=== PATIENT | female | born 1995 ===

== ENCOUNTER 2017-12-02 06:00 | Inpatient (IN) ==
[2017-12-02] MEDS ORDERED: Naloxone 0.4 MG/ML INJ IVP PRN (07:19)
[2017-12-02] MEDS ORDERED: *HR* Nalbuphine 20 MG/ML AMPUL IVP PRN (07:19)
[2017-12-02] MEDS ORDERED: Metoclopramide 10 MG/2 ML VIAL IVP PRN (07:19)
[2017-12-02] MEDS ORDERED: Ondansetron 4 MG/2 ML VIAL IVP PRN (07:19)
[2017-12-02] MEDS ORDERED: Famotidine 20 MG/2 ML VIAL IVP PRN (07:19)
[2017-12-02] MEDS ORDERED: miSOPROStol 25 MCG TABLET VG PRN (07:22)
[2017-12-02] MEDS ORDERED: Ringers Solution, Lactated 1,000 ML IVC SCH (07:30)
[2017-12-02 08:12] LABS: Basophils % 0.1 %; Eosinophils # 0.1 K/mcL (0.0-0.6); Eosinophils % 0.9 %; Hematocrit 33.3 % (35.3-44.9); Hemoglobin 10.8 g/dL (11.5-15.4); Immature Granulocytes % 0.4 % (0-4); Lymphocytes # 1.6 K/mcL (0.6-4.6); Lymphocytes % 19.4 %; Mean Corpuscular HGB Conc 32.4 g/dL (31.6-35.5); Mean Corpuscular Hemoglobin 27.1 pg (28.0-33.3); Mean Corpuscular Volume 83.7 fL (83.0-100.0); Mean Platelet Volume 11.4 fL (9.4-12.4); Monocytes # 0.6 K/mcL (0.0-1.3); Monocytes % 7.9 %; Neutrophils # 5.8 K/mcL (1.6-8.9); Platelet Count 176 K/mcL (140-400); Red Blood Count 3.98 M/mcL (3.82-4.97); Red Cell Distribution Width 13.6 % (11.5-14.5); Segmented Neutrophils % 71.3 %
--- NOTE | 2017-12-02 08:28 | OB/GYN History & Physical ---
Date of Encounter: 12/02/17 Time of Encounter: 08:30 Assessment and Plan (1) and not yet delivered in third trimester Current visit: Yes Status: Acute (2) 39 weeks gestation of Current visit: Yes Status: Acute (3) Elective induction of labor planned Current visit: Yes Status: Acute Patient will be induced with a Hollis catheter and Cytotec plan is to anticipate vaginal delivery History of Present Illness HPI: Ms. Iqbal is a 22 year old female 2 para 0101 at 39-3/7 weeks by last menstrual period equal to an 8 and 6/7 week ultrasound who presented for induction of labor due to term with favorable cervix patient has had an unremarkable course and wanted be induced as soon she could patient' s cervix was favorable and we advised after 39 weeks we could induce her. She did have an ultrasound approximately 3 weeks ago baby weighed 2915 g which was at the 54th percentile with an AUNDREA of 14 cm. She is not complaining of any leaking of fluid no contractions and good movement. Patient has a positive rubella positive GBS negative Past Med Surg Social Fam HX - Past Medical History Medical history: no medical history Psychiatric history: no psych history - Past Surgical History Surgical History: non-contributory, other (Tonsillectomy with adenoids, wisdom teeth) - Social History Smoking Status: Never smoker Smokeless Tobacco Status: No Alcohol use: none Drug use: none Occupational status: unemployed Current living situation: Home - Independent Activity Level: Independent ambulation Recent Out of Country Travel Within the Last 8 Weeks: No Exposure or Possible Exposure to Illness During Travel: No - Family History Mother History Unknown: Yes Living Status: Still Living Hx Family Cardiac Disorders: No Hx Family Respiratory Disorders: No Hx Family Cancer: No Hx Family GI Disorders: No Hx Family Genitourinary Disorders: No Hx Family Endocrine Disorder: No Hx Family Musculoskeletal Disorders: No Hx Family Neuromuscular Disorders: No Hx Family Neurologic Disorders: No Hx Family HEENT Disorders: No Hx Family Autoimmune Disorders: No Hx Family Reproductive Disorders: No Hx Family Psychosocial Disorders: No Hx Family Medical Disorders: No - Additional Family History Additional family history: Family history noncontributory at this time Obstetrical History - Pregnancies : 2 Para: 1 Term: 0 : 1 Ab's: 0 Livin Medications and Allergies 3 Allergy/AdvReac Type Severity Reaction Status Date / Time No Known Allergies Allergy Verified 05/29/15 22:41 Review of System OB All systems PM: reviewed and no additional remarkable complaints except as stated Exam - Constitutional Constitutional: well developed, well nourished, no acute distress, average body habitus - HEENT HEENT: EOMI, PERRL, Mucus Membranes Moist - Neck Neck exam: full ROM - Lungs Respiratory exam: CTAB - Cardiovascular Cardiovascular exam: RRR - Abdomen Abdomen: Present: bowel sounds normal, gravid - Cervix Dilation: 2 Effacement: 80 Station: -2 (Hollis catheter placed within the cervical os 30 mL balloon inflated and 25 g of Cytotec placed in the posterior cul-de-sac) Results Result Diagrams: 12/02/17 07:31 Abnormal lab results Hgb 10.8 g/dL (11.5-15.4) L 12/02/17 07:31 Hct 33.3 % (35.3-44.9) L 12/02/17 07:31 MCH 27.1 pg (28.0-33.3) L 12/02/17 07:31 All other labs normal. - VTE Reasons for not Prescribing Prophylaxis: Treatment not Indicated - Low risk for VTE
--- NOTE | 2017-12-02 08:35 | Anesthesia Evaluation PreOp ---
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 Other Medical History: Denies Any Significant HX Anesthesia History: No Prior Anesthetic Complications, Past Anesthesia Alcohol Use: none Drug use: none Medications and Allergies 3 Allergy/AdvReac Type Severity Reaction Status Date / Time No Known Allergies Allergy Verified 05/29/15 22:41 Anesthesia Results - Labs 12/02/17 07:31 Anesthesia Exam - HEENT Pupil (Motor): Pupils equal Mallampati: II Teeth: Normal Oral Opening: Greater than 3 - NON GARMENT SEWING MACHINE OPERATOR LOC: Oriented NON GARMENT SEWING MACHINE OPERATOR Motor: Normal RUE, Normal LUE, Normal RLE, Normal LLE, Normal Face NON GARMENT SEWING MACHINE OPERATOR Sensory: Normal: RUE, LUE, RLE, LLE, Face - Cardiac Rhythm: Regular Murmur: None - Pulmonary Breath Sounds: bilateral Clear Respiratory Effort: Symmetrical Anesthesia Assess/Plan ASA Score: 2 Modified Jesus Scale for Level of Consciousness: Cooperative, oriented, and tranquil Anesthetic Plan: General, Regional Monitoring Plan: Standard Monitors Recovery Plan: PACU
[2017-12-02 08:42] LABS: Amphetamine Screen,Urine Negative ng/mL (Cutoff=1000); Barbiturate Screen,Urine Negative ng/mL (Cutoff=200); Benzodiazepines Screen,Urine Negative ng/mL (Cutoff=200); Cannabinoid Screen,Urine Negative ng/mL (Cutoff = 50); Cocaine Screen,Urine Negative ng/mL (Cutoff= 300); Opiate Screen,Urine Negative ng/mL (Cutoff=300); Phencyclidine Screen,Urine Negative ng/mL (Cutoff=25)
[2017-12-02] MEDS ORDERED: Epidural Premix (fent/bupiv) 110 ML EP ONE ×2 (08:45→17:02)
--- NOTE | 2017-12-02 10:38 | OB Labor Progress Note ---
Date of Encounter: 12/02/17 Time of Encounter: 10:35 Labor Progress Note - Subjective Subjective: Pt reports pain manageable for now. Rates ctx 6/10 - Cervix Cervix: 4/60/-1 - Heart Tones Heart Tones: Baseline 145 Moderate variability Accelerations present and 15 x 15 Recurrent variable and late decelerations - position changed Fetus Category II - [place]: Contractions every 3 minutes and palpate moderate - Interventions Interventions: Position change made to improve FHR. - Plan Plan: Continue induction management Frequent position changes Will reevaluate for AROM in 1 hour Anticipate vaginal delivery
--- NOTE | 2017-12-02 12:08 | Anesthesia Procedures ---
Date of Encounter: 12/02/17 Time of Encounter: 11:46 Procedures: Anesthesia - Epidural/Spinal Patient ID/Chart reviewed: Yes Patient examined: Yes OB Eval: Gestational age: term OB Eval: : 2 OB Eval: Hx Para: 1 OB Eval: Contractions: Non-stressed pattern Consent Obtained: Yes Supplemental Oxygen: None/Room Air Site Prep: Aseptic Technique, Sterile prep and drape, 0.5% Chlorhexidine/Alcohol Patient position: upright Local Anesthetic: Lidocaine 1% Amount of Local Anesthetic used: 2 Touhy Needle Gauge: 18 Touhy Needle Depth (cm): 7 Catheter Depth at Skin (cm): 12 Test Dose (1.5% Lido + Epi): Volume given (mls): 3 Test Dose Result: Negative Loading Dose: Other: 10ml from solution Loading Dose Administered: Thru Catheter Infusion Med: 0.125% Bupivacaine w/ 2 mcg/ml Fentanyl Infusion Rate (mls/hr): [address]: Tegaderm, Tape Interspace Used: L3-L4 Loss of Resistance (SOFIYA): Yes (saline) Blood: No CSF: No Paresthesia: No Procedure: vss though out, FHR stable per RN's
--- NOTE | 2017-12-02 12:52 | OB Labor Progress Note ---
Date of Encounter: 12/02/17 Time of Encounter: 12:50 Labor Progress Note - Subjective Subjective: Pt reports pain well controlled with epidural. SROM upon entering room - clear fluid - Cervix Cervix: 4/60/-1 - Heart Tones Heart Tones: Baseline 145 Moderate variability Accelerations present 15x15 Decelerations rare - variable Category II - [place]: Unable to determine - palpate 3-5 and moderate - Interventions Interventions: IUPC placed - Plan Plan: Continue expectant management IUPC placed Consider pitocin initiation to adequate contraction pattern Anticipate vaginal delivery Dr. Lacy aware of POC and agrees
--- NOTE | 2017-12-02 14:25 | OB Labor Progress Note ---
Date of Encounter: 12/02/17 Time of Encounter: 14:21 Labor Progress Note - Subjective Subjective: Pt reports pain well controlled with epidural. No other concerns at this time. - Cervix Cervix: 4/60/-1 - Heart Tones Heart Tones: Baseline 155 Moderate variability Accelerations present 15 x 15 Occasional variable decelerations Fetus Category II - [place]: Contractions every 3+ minutes - Interventions Interventions: Start pitocin - Plan Plan: Continue expectant management Start pitocin Use peanut ball for frequent position changes Anticipate vaginal delivery
[2017-12-02] MEDS ORDERED: Oxytocin 20 units/ LR 1000 mL 20 UNIT/1,000 ML BAG IVC SCH (14:30)
--- NOTE | 2017-12-02 16:36 | OB Labor Progress Note ---
Date of Encounter: 12/02/17 Time of Encounter: 16:34 Labor Progress Note - Subjective Subjective: Pt reports being able to feel contractions but they are manageable at this time. Epidural remains in place. Pt does not desire bolus at this time. - Cervix Cervix: 6/70/-1 - Heart Tones Heart Tones: Baseline 155 Moderate variability Accelerations present 15 x 15 Variable decelerations occasional FHR Category II - [place]: IUPC in place Ctx 2-3 minutes and palpate strong - Plan Plan: Continue expectant management Maintain frequent position changes Continue pitocin augmentation Anticipate vaginal delivery Dr. Lacy aware of POC and agrees
[2017-12-02] MEDS ORDERED: Lidocaine/EPI 1:200k 2% PF 20 ML VIAL ONE ×2 (16:56→20:04)
--- NOTE | 2017-12-02 17:27 | Anesthesia Progress Note ---
Date of Encounter: 12/02/17 Time of Encounter: 17:04 Anesthesia Note - Note Note: 12/02/17 17:24 bolus after neg aspiration 7ml equal mix of 0.5% bup plain, and lido 2% with epi 1:200K. for right sided back labor, RN and I spoke with patient about epidurals and back labor, left sided level T6, right sided T4 to ETOH skin. VSS family at .
--- NOTE | 2017-12-02 18:57 | OB Labor Progress Note ---
Date of Encounter: 12/02/17 Time of Encounter: 18:55 Labor Progress Note - Subjective Subjective: Pt aware of contractions but comfortable with epidural. States she feels pressure "like someone is pulling on my catheter." - Cervix Cervix: 790/-1 Cervix slightly swollen - Heart Tones Heart Tones: Baseline 155 Moderate variability Accelerations present 15x15 Recurrent late decelerations - Dr. Lacy aware/position changes made/IV fluid bolus initiated FHR Category II - [place]: IUPC contractions every 2-4 palpating strong - Interventions Interventions: FSE placed - Plan Plan: Continue expectant management Continue frequent position changes Use peanut ball FSE placed Anticipate vaginal delivery Dr. Lacy aware of POC and agrees
[2017-12-02] MEDS ORDERED: Ondansetron 4 MG/2 ML VIAL ONE (20:14)
[2017-12-02] MEDS ORDERED: *HR* Oxytocin 10 UNIT/ML VIAL IM ONE (20:14)
[2017-12-02] MEDS ORDERED: Ringers Solution, Lactated 1,000 ML ONE (20:21)
[2017-12-02] MEDS ORDERED: Morphine Sulfate/PF 5mg/10mL Vial ONE (21:08)
[2017-12-02] MEDS ORDERED: Acetaminophen IV 1,000 MG/100 ML INFUS..BTL IVPB ONE (21:14)
[2017-12-02] MEDS ORDERED: *HR* Promethazine 25 MG/ML VIAL IVP PRN (21:14)
--- NOTE | 2017-12-02 21:31 | OB Labor Progress Note ---
Date of Encounter: 12/02/17 Time of Encounter: 20:30 Labor Progress Note - Subjective Subjective: Patient having repetitive late decelerations every time we try to get the Pitocin started patient is still at 6 cm and since baby is not tolerating the labor as recommended section - Cervix Cervix: 6/80/-3 ballotable - Heart Tones Heart Tones: heart tones 140s with category 2 strip with repetitive late decelerations - [place]: Contractions every 2-3 minutes - Plan Plan: Patient will be prepped for a primary low transverse uterine section
--- NOTE | 2017-12-02 21:34 | OB/GYN Procedure Note ---
Section - Date of procedure: 12/02/17 Preop diagnosis: other (Intrauterine at 39-3/7 weeks, category 2 tracing with repetitive late decelerations, failure to progress) Post-op diagnosis: same Procedure: primary low transverse Surgeon: Vijay Lacy Estimated blood loss (cc): 500 Was there an law office assistant present: Yes Senior Coldfusion Developer: Roshni Plata Anesthesiologist: Elke Madrigal Doors Prefitter: Isauro Whitney Anesthesia Type: Epidural section complications: none Disposition: L&D Recovery Room Specimens: Placenta - (s) Infant A Infant Delivery Date: 12/02/17 Delivery Time: 20:47 Presentation: vertex Position: ROP Route of delivery: other ( section) Gender: Female Viability: Viable Pounds: 7 Ounces: 8 at 1 minute: 9 at 5 minutes: 9 Shoulder Dystocia: not encountered Specimens collected: cord blood Placenta: spontaneous Cord: 3 umbilical vessels - Narrative Narrative: Patient is a 22-year-old 2 para 1 at 39 and 3 since weeks who presented for induction of labor secondary to in with favorable cervix for the catheter and Cytotec was placed which had fallen out approximately 2 hours after placement she was artificially ruptured for clear fluid patient's contractions had spaced out we started on Pitocin patient was doing well and started having repetitive late decelerations we turned the Pitocin off those it resolved we tried restarting the Pitocin and the decelerations returned patient was only 6 cm -3 ballotable it was decided at this time that section would be called. Procedure: Patient was taken to the operating room where epidural anesthesia was found be adequate. She was placed in the dorsal supine position with leftward tilt prepped and draped in usual fashion. Timeout was then obtained. A Pfannenstiel incision was made with a scalpel carried out through the underlying tissue to the fascia was identified. Fascia was nicked in midline and extended laterally with Galvez scissors. The superior and inferior edge of the fascia grasped tented up and dissected off the rectus muscles. Rectus muscles were in the midline parietal peritoneum was identified tented up and entered sharply. This was extended superiorly and inferiorly with Metzenbaum scissors. The bladder blade was inserted and the versicouterine peritoneum was identified tented up and entered sharply. The lower uterine segment was incised with a scalpel extended laterally with digital manipulation. The 's head was noted to be in occiput posterior presentation, was disengaged through the incision and the infant was fully delivered the cord was clamped and cut was handed off to waiting pediatric team. Cord blood was not necessary at this time placental spontaneously delivered with a three-vessel cord. Placenta was exteriorized and cleaned of all clots and debris and the lower uterine segment was closed using 0 Vicryl in a running locking stitch by a 2 layer closure. Good hemostasis was noted at this time. The uterus was returned to the abdomen the gutters were cleaned of all clots and debris and copiously irrigated. No active bleeding was noted the fascia was then closed using a #1 stratafix in a running stitch and the skin was closed using a 4-0 Vicryl in subcuticular manner a PRIMEO dressing was then applied and the patient was taken to the recovery room in stable condition. All needles lap and sponge counts were correct 3 and patient tolerated the delivery well for 2 hours before being taken to the floor.
[2017-12-02] MEDS ORDERED: *HR* FentaNYL (PF) 100 MCG/2 ML VIAL ONE (21:38)
[2017-12-03] MEDS ORDERED: Simethicone 80 MG TAB.CHEW PO PRN (00:05)
[2017-12-03] MEDS ORDERED: Ringers Solution, Lactated 1,000 ML IVC SCH (00:05)
[2017-12-03] MEDS ORDERED: Sennosides 8.6 MG TABLET PO PRN (00:05)
[2017-12-03] MEDS ORDERED: MORPHINE SUL Oral CONC 10 MG/0.5 ML ORAL.SYG SL PRN (00:05)
[2017-12-03] MEDS ORDERED: Oxytocin 20 units/ LR 1000 mL 20 UNIT/1,000 ML BAG IVC SCH ×2 (00:05)
[2017-12-03] MEDS ORDERED: Ondansetron 4 MG/2 ML VIAL IVP PRN (00:05)
[2017-12-03] MEDS ORDERED: Metoclopramide 10 MG/2 ML VIAL IVP PRN (00:05)
[2017-12-03] MEDS ORDERED: *HR* OxyCODONE/APAP 5/325 TABLET PO PRN (00:05)
[2017-12-03] MEDS: *HR* OxyCODONE/APAP 10/325 TABLET PO PRN ×4 (02:08→22:57)
[2017-12-03] MEDS ORDERED: *HR* Nalbuphine 20 MG/ML AMPUL IM PRN (07:01)
[2017-12-03 08:09] LABS: Basophils % 0.2 %; Eosinophils % 0.3 %; Hematocrit 31.1 % (35.3-44.9); Hemoglobin 9.9 g/dL (11.5-15.4); Immature Granulocytes % 0.9 % (0-4); Lymphocytes # 1.1 K/mcL (0.6-4.6); Lymphocytes % 9.9 %; Mean Corpuscular HGB Conc 31.8 g/dL (31.6-35.5); Mean Corpuscular Hemoglobin 26.6 pg (28.0-33.3); Mean Corpuscular Volume 83.6 fL (83.0-100.0); Mean Platelet Volume 11.3 fL (9.4-12.4); Monocytes # 0.7 K/mcL (0.0-1.3); Monocytes % 6.7 %; Nucleated Red Blood Cells 0.4 /100 WBC (0); Platelet Count 156 K/mcL (140-400); Red Blood Count 3.72 M/mcL (3.82-4.97); Red Cell Distribution Width 13.7 % (11.5-14.5)
[2017-12-03] MEDS: Prenatal Vit/FA 1 EACH TABLET PO SCH (08:10)
--- NOTE | 2017-12-03 08:40 | OB/GYN Progress Note ---
Date of Encounter: 12/03/17 Time of Encounter: 08:35 - Assessment and Plan (1) delivery delivered Current Visit: Yes Status: Acute Meeting postop milestones Continue routine postop/ care Anticipate discharge home tomorrow (2) Anemia Current Visit: No Status: Acute VSS, asymptomatic Continue po iron daily Qualifiers: Anemia type: unspecified type Qualified Code(s): D64.9 - Anemia, unspecified (3) Mother currently breast-feeding Current Visit: Yes Status: Acute well Subjective - Subjective Principal diagnosis: S/P primary Interval history: S/P ceserean delivery day 1 Pain well controlled Passing flatus; tolerating liquid diet, may advance as tolerated Lochia light and without clots Generalized pruritus with localized rash to areas washed with chlorhexadine; hydrocortisone cream ordered and anesthesia consulted Hollis catheter in place; will remove this morning Breast feeding well VSS Anticipate discharge home tomorrow. Patient reports: appetite normal, voiding normally (Hollis catheter present; will be removed this morning), pain well controlled, ambulating normally Fosters: doing well, nursing well Objective - Vital Signs Latest vital signs: Vital Signs Temp Pulse Resp BP Pulse Ox 12/03/17 08:24 98.3 F 103 12 121/78 98 12/03/17 03:10 99 F 98 16 123/54 96 12/03/17 02:10 99.8 F H 92 20 116/72 96 12/03/17 01:10 98.6 F 91 16 130/78 96 12/03/17 00:45 98.8 F 92 18 116/54 97 12/03/17 00:10 98.1 F 84 16 113/68 96 Intake and Output 12/02/17 12/03/17 12/03/17 23:59 07:59 15:59 Intake Total 120 / 120 Output Total 900 / 900 Balance -780 / -780 Intake: Oral 120 / 120 Output: Catheter 900 / 900 Other: Weight 96.4 kg Patient Weight 12/03/17 23:59 Weight 96.4 kg - Exam Lungs: bilateral: normal Chest: Normal S1, Normal S2 Extremities: Present: normal, edema (1+ BLE) Abdomen: Present: normal appearance, soft. Absent: gravid, tenderness Incision: Present: normal (Dressing C/D/I) Uterus: Present: normal, firm Fundal Height: 0 (u/u) - Labs Labs: Laboratory Results - last 24 hr 12/02/17 12/03/17 07:31 07:34 WBC 10.9 RBC 3.72 L Hgb 9.9 L Hct 31.1 L MCV 83.6 MCH 26.6 L MCHC 31.8 RDW 13.7 Plt Count 156 MPV 11.3 Immature Gran % 0.9 Seg Neutrophils % 82.0 Lymphocytes % 9.9 Monocytes % 6.7 Eosinophils % 0.3 Basophils % 0.2 Neutrophils # 9.0 H Lymphocytes # 1.1 Monocytes # 0.7 Eosinophils # 0.0 Basophils # 0.0 Nucleated RBCs/100 WBC 0.4 H Urine Opiates Screen Negative Ur Barbiturates Screen Negative Ur Phencyclidine Scrn Negative Ur Amphetamines Screen Negative U Benzodiazepines Scrn Negative Urine Cocaine Screen Negative U Marijuana (THC) Screen Negative
[2017-12-03] MEDS ORDERED: Azithromycin 250 MG TABLET PO ONE (09:00)
[2017-12-03] MEDS: metroNIDAZOLE 500 MG TABLET PO SCH ×2 (09:07→20:01)
[2017-12-03] MEDS: Ibuprofen 600 MG TABLET PO PRN (20:01)
[2017-12-04] MEDS: Ibuprofen 600 MG TABLET PO PRN (05:05)
[2017-12-04] MEDS: Prenatal Vit/FA 1 EACH TABLET PO SCH (07:46)
[2017-12-04] MEDS: metroNIDAZOLE 500 MG TABLET PO SCH (07:47)
--- NOTE | 2017-12-04 08:09 | Discharge Summary ---
Date of Encounter: 12/04/17 Time of Encounter: 08:00 - Discharge Diagnosis (1) and not yet delivered in third trimester Priority: Secondary Status: Acute (2) 39 weeks gestation of Priority: Secondary Status: Acute (3) Elective induction of labor planned Priority: Secondary Status: Acute (4) delivery delivered Priority: Primary Status: Acute - Discharge Medications Prescriptions: OxyCODONE/APAP 5/325 [Percocet 5/325 MG] 1 each PO Q4HR PRN 7 Days #42 tablet PRN Reason: Pain Ferrous Sulfate 325 mg PO DAILY #30 tablet Home Medications: Ferrous Sulfate 325 mg PO DAILY #30 tablet 12/04/17 [Rx] OxyCODONE/APAP 5/325 [Percocet 5/325 MG] 1 each PO Q4HR PRN 7 Days #42 tablet [Rx] Allergies/Adverse Reactions: 3 Allergy/AdvReac Type Severity Reaction Status Date / Time No Known Allergies Allergy Verified 05/29/15 22:41 Data Procedures and tests throughout hospitalization: Laboratory Tests 12/02/17 12/02/17 12/03/17 07:31 07:31 07:34 WBC 8.1 10.9 RBC 3.98 3.72 L Hgb 10.8 L 9.9 L Hct 33.3 L 31.1 L MCV 83.7 83.6 MCH 27.1 L 26.6 L MCHC 32.4 31.8 RDW 13.6 13.7 Plt Count 176 156 MPV 11.4 11.3 Immature Gran % 0.4 0.9 Seg Neutrophils % 71.3 82.0 Lymphocytes % 19.4 9.9 Monocytes % 7.9 6.7 Eosinophils % 0.9 0.3 Basophils % 0.1 0.2 Neutrophils # 5.8 9.0 H Lymphocytes # 1.6 1.1 Monocytes # 0.6 0.7 Eosinophils # 0.1 0.0 Basophils # 0.0 0.0 Nucleated RBCs/100 WBC 0.4 H Urine Opiates Screen Negative Ur Barbiturates Screen Negative Ur Phencyclidine Scrn Negative Ur Amphetamines Screen Negative U Benzodiazepines Scrn Negative Urine Cocaine Screen Negative U Marijuana (THC) Screen Negative Labs on day of discharge: Labs from last 24 hours 12/03/17 07:34 WBC 10.9 RBC 3.72 L Hgb 9.9 L Hct 31.1 L MCV 83.6 MCH 26.6 L MCHC 31.8 RDW 13.7 Plt Count 156 MPV 11.3 Immature Gran % 0.9 Seg Neutrophils % 82.0 Lymphocytes % 9.9 Monocytes % 6.7 Eosinophils % 0.3 Basophils % 0.2 Neutrophils # 9.0 H Lymphocytes # 1.1 Monocytes # 0.7 Eosinophils # 0.0 Basophils # 0.0 Nucleated RBCs/100 WBC 0.4 H Date of admission: 12/02/17 06:19 Primary care physician: Gunjan Martinez Discharging clinician: Vijay Lacy Anticipated date of discharge: 12/04/17 - Patient Status Disposition: Home, Self-Care Condition: Good Functional capacity at discharge: independent ambulation Overall status at discharge: patient is progressing back to baseline - Discharge Instructions Follow Up With: Meera Hartman, CREATIVE PRODUCER [Primary Care Provider] - Vijay Lacy DO [Partnered Physician] - - Diet and Activity Activity: increase activity as tolerated Diet: advance to your usual diet Hospital Course Procedures: Primary low transverse section Reason for admission: induction of labor Delivery: section Episiotomy: none Laceration: none Other procedures: none complications: none Discharge diagnosis: IUP at term delivered baby: female Hospital course: Patient is a 22-year-old 2 para 1 who presented for induction of labor secondary to with favorable cervix. Patient's labor was complicated with repetitive late decelerations and we were unable to get the patient in a good contraction pattern for vaginal delivery patient arrested at approximate 6 cm and with the nonreassuring tones recommended section she did undergo a primary section without any complications hospital course was unremarkable was advanced on hospital day #1 and by day #2 patient was ready to go home patient's incision is doing well, no skin seperation noted, she was offered a LARC will wait to discuss options in the office, she will be discharged home this morning with scripts for percocet #42 and iron 325mg, will follow up in the office in 2 wks Time Attestation: Total time spent providing and/or coordinating discharge services: - VTE Reasons for not Prescribing Prophylaxis: Treatment not Indicated - Low risk for VTE Documentation of Mechanical Device: Intermittent pneumatic compression device Exam - Constitutional Vitals: Temp Pulse Resp BP Pulse Ox 97.4 F L 98 18 111/69 100 12/03/17 19:35 12/03/17 19:35 12/03/17 19:35 12/03/17 19:35 12/03/17 19:35 General appearance IM: mild distress, A&O X 3 - Respiratory Respiratory exam: Present: CTAB - Cardiovascular Cardiovascular exam IM: Present: RRR - GI/Abdominal GI/Abdominal exam IM: normal bowel sounds Incision: normal, intact Additional comments: PRIMO dressing was removed by nursing staff not knowing was supposed to stay on - Rectal Rectal exam: deferred - Uterus Position: At Umbilicus
[2017-12-04] MEDS ORDERED: Azithromycin 250 MG TABLET PO SCH (09:00)
[2017-12-04 09:06] VITALS: BP 111/69
== END 2017-12-04 11:30 | disposition home or self-care (01) | DRG 766 ==
LOC: 1NENULAB 06:19 → 1NENUOBS 12-03 00:03
PROVIDERS: ADMIT Obstetrics & Gynecology; ATTEND Obstetrics & Gynecology